=== PATIENT | male | born 1990 | race Hispanic/Latino ===

== ENCOUNTER 2019-10-10 15:07 | Emergency (ER) | payer SELFPAY ==
[2019-10-10] MEDS ORDERED: Adacel (T-DAP) 0.5 ML SYRINGE ONE (15:14)
[2019-10-10] MEDS ORDERED: Lidocaine 1% w/Epinephrine 1:100K 20 ML VIAL ONE (15:38)
[2019-10-10] MEDS ORDERED: Bacitracin 1 PK ONE (16:42)
== END 2019-10-10 17:10 | disposition home or self-care (01) ==
LOC: ERS 15:07
DX: S31.119A Laceration without foreign body of abdominal wall, unspecified quadrant without penetration into peritoneal cavity, initial encounter (principal); S21.219A Laceration without foreign body of unspecified back wall of thorax without penetration into thoracic cavity, initial encounter; S41.011A Laceration without foreign body of right shoulder, initial encounter; X99.1XXA Assault by knife, initial encounter
CPT/HCPCS: 12007; 90471; 90715; 96365; J0690